=== PATIENT | female | born 1940 | race Caucasian/White ===

== ENCOUNTER 2016-11-20 11:10 | Day surgery (SDC) | payer MEDICARE ==
[~2016-11-20] VITALS: Ht 165.1 cm; Wt 82.5 kg
[~2016-11-20 11:10] MED LIST: 0.9% Sodium Chloride 1,000 ML IV SCH; Sodium Chloride LOK Flush 10 mL Syringe IV PRN; fentaNYL-PF 50 mCg/mL 2 mL Inj IVPUSH PRN
[2016-11-20 11:29] VITALS: BP 122/73; PULSE 72; RESP 17; O2SAT 96
[2016-11-20] MEDS ORDERED: ATRV10T PO (11:31)
[2016-11-20 12:56] VITALS: BP 119/65; PULSE 67; RESP 12; O2SAT 97
[2016-11-20 13:08] VITALS: BP 115/65; PULSE 64; RESP 14; O2SAT 97
[2016-11-20 13:16] VITALS: BP 119/71; PULSE 68; RESP 14; O2SAT 98
--- NOTE | 2016-11-20 13:46 | ENDO ---
[address] [address] ENDOSCOPY PROCEDURE PATIENT: ED KANG : 1940 MR#: [id number] ADMIT: 11/20/2016 JOB ID: [id number] DATE: 11/20/2016 PROCEDURE: Colonoscopy. INDICATIONS: Screening. The patient's ASA classification is 2. Mallampati score is 2. MEDICATIONS: 1. Versed 3 mg. 2. Fentanyl 75 mcg. INSTRUMENT USED: PCF H 180 AL. PREPARATION QUALITY: Was fair. PROCEDURE DETAILS: After informed consent was obtained, the patient was brought into the GI suite, where she was placed on oxygen via nasal cannula and monitored with continuous pulse oximeter, telemetry and blood pressure monitoring. A time-out was performed. Then, she was placed in the left lateral decubitus position and medications were administered for sedation. Digital rectal examination was performed, which was unremarkable. The colonoscope was then inserted into the rectum and advanced under direct visualization to the cecum, which was identified by the presence of the ileocecal valve and appendiceal orifice. Once the cecum was reached, the colonoscope was withdrawn back into the rectum as the mucosa and lumen were examined. In the rectum, retroflexion was performed. Following retroflexion, remaining air in the rectum was suctioned, and procedure was completed. FINDINGS: In the rectum there was a diminutive polyp that was removed with cold biopsy forceps. Otherwise normal examination from rectum to cecum. IMPRESSION: Rectal polyp. RECOMMENDATIONS: Repeat colonoscopy pending polyp pathology results. COMPLICATIONS: None. ESTIMATED BLOOD LOSS: Less than 5 mL.
--- NOTE | 2016-11-21 13:21 | PATH ---
SURGICAL PATHOLOGY Attending Physician:Gregg Guerra CASE STATUS: Signed Out PATIENT NAME: ED KANG PID: [id number] : 1940 DATE COLLECTED:11/20/2016 19:24 SPECIMEN: Rectum, Biopsy CLINICAL HISTORY: 1). RECTAL POLYP FINAL DIAGNOSIS: 1.RECTAL POLYP: HYPERPLASTIC POLYP. ICD10 K62.1 GROSS DESCRIPTION: Received in formalin, labeled with the patient' s name and "rectal polyp", is one fragment of briggs, soft tissue measuring 0.4 x 0.1 x 0.1 cm. The fragment is totally submitted in one cassette. ([id number]) MICRO DESCRIPTION: See diagnosis. ICD-9 CODES: CPT CODES: 1: 39841 Electronically Signed Out Omega Pabon MD [facility] Pathology [facility] [address], [place] [address] Technical component performed at [facility], [address] [place] [address] Ave[address], [address]
== END 2016-11-20 23:59 | disposition home or self-care (01) ==
LOC: END 11:10
PROVIDERS: ATTEND Internal Medicine Gastroenterology
DX: Z12.11 Encounter for screening for malignant neoplasm of colon (principal); K62.1 Rectal polyp; E03.9 Hypothyroidism, unspecified; E78.5 Hyperlipidemia, unspecified; M19.90 Unspecified osteoarthritis, unspecified site; M85.80 Other specified disorders of bone density and structure, unspecified site; E66.9 Obesity, unspecified; Z85.41 Personal history of malignant neoplasm of cervix uteri; Z68.30 Body mass index [BMI] 30.0-30.9, adult
CPT/HCPCS: 45380; G0500; J2250; J3010; J7030